=== PATIENT | female | born 1975 | race Caucasian/White ===

== ENCOUNTER 2024-08-18 08:54 | Outpatient (REF) | payer MEDICAID, SELFPAY ==
[2024-08-18 16:03] LABS: Calculated LDL 186 mg/dL (<100); Cholesterol 279 mg/dL (<200); Glucose 91 mg/dL (74-106); HDL Cholesterol 57 mg/dL (>or=50); Triglyceride 181 mg/dL (<150)
== END 2024-08-18 08:55 | disposition home or self-care (01) ==
LOC: NCHCN 08:54
PROVIDERS: PCP Nurse Practitioner Family; Visit Provider Internal Medicine
DX: Z13.220 Encounter for screening for lipoid disorders (principal); E66.3 Overweight
CPT/HCPCS: 80061; 82947

== ENCOUNTER 2025-03-08 11:13 | Outpatient (REF) | payer MEDICAID, SELFPAY ==
--- NOTE | 2025-03-08 10:00 | PAPFT_PTH ---
PATIENT: Tanya Giron LOC: [facility]#:[id number] AGE/SX: 49/F ROOM: RE03/08/[address]: Christelle Segura : 1975 BED: DIS: 03/08/2025 SPEC #: [id number] RECD: 03/08/25 18:04 STATUS: ADAMARIS OLEARY #: [id number] JEN: 03/08/25 10:[address]: Christelle Segura DEPT: [facility] Cytology RECD BY: Kayla Sosa ENTERED: 03/08/25 18:05 SP TYPE: PAPFT OTHR DR: Anna Zaragoza Tissues: 1 - CX/ENDOCX FOR PAP SMEARS Procedures: PAP THIN PREP/[facility] Screening HPV DNA PROBE Comments: [id number] (HPV 16 & 18/45)
== END 2025-03-08 11:14 | disposition home or self-care (01) ==
LOC: NCHCN 11:13
PROVIDERS: PCP Nurse Practitioner Family; Visit Provider Internal Medicine
DX: Z12.4 Encounter for screening for malignant neoplasm of cervix (principal)
CPT/HCPCS: 88142; 87624

== ENCOUNTER → 2025-03-27 02:29 | Outpatient (CLI) | payer MEDICAID, SELFPAY ==
--- NOTE | 2025-03-27 | DI.US_ITS ---
Exam(s) US PELVIS TRANSVAGINAL EXAM: US PELVIS TRANSVAGINAL CLINICAL HISTORY: EXCESSIVE FREQUENT MENSTRATION IRREGULAR CYCLE N92.1 METRORRHAGIA TECHNIQUE: Transabdominal and transvaginal imaging was performed using standard protocol. COMPARISON: No exams were available for comparison FINDINGS: The bladder is unremarkable. UTERUS: Anteverted. 8.8 x 3.8 x 4.3 cm Endometrium: 8-11 mm. There is an IUD which is situated in the cervix and lower uterine segment. One of the side-arms is extending into the myometrium. Myometrium: Anterior lower uterine segment fibroid measuring 2.7 cm. Posterior fundal fibroid measuring 1.5 cm. Cervix: Nabothian cysts. OVARIES: Right: Cyst or mass: 2 follicles measuring 15 and 20 millimeters. Left: Not visualized. DOPPLER: Color: Symmetric and uniform flow to both ovaries. No hyperemia. CUL-DE-SAC: Free fluid: None. IMPRESSION: The IUD is positioned low in the cervix and lower uterine segment. One of the side arms extends into the myometrium. Two small uterine fibroids. Left ovary is not visualized. DATA REPOSITORY:
== END ==
PROVIDERS: PCP Nurse Practitioner Family; Visit Provider Internal Medicine
DX: N92.1 Excessive and frequent menstruation with irregular cycle (principal); D25.9 Leiomyoma of uterus, unspecified
CPT/HCPCS: 76830; 76856